=== PATIENT | female | born 1960 | race Caucasian/White ===

== ENCOUNTER 2016-04-25 14:50 | Emergency (ER) | payer BC ==
[~2016-04-25] VITALS: Ht 165.1 cm; Wt 75.0 kg
[2016-04-25 14:57] VITALS: BP 106/52; PULSE 93; RESP 18; TEMP 99.6; O2SAT 96
[2016-04-25] MEDS ORDERED: TOPI1TAB36 PO (15:05)
[2016-04-25] MEDS ORDERED: FENT12DI T-DERMAL (15:05)
[2016-04-25] MEDS ORDERED: HYDR-3535 PO (15:05)
[2016-04-25] MEDS ORDERED: GABA300C5 PO (15:05)
[2016-04-25] MEDS ORDERED: DULO1CAP3 PO (15:05)
[2016-04-25] MEDS ORDERED: VARE1 PO (15:06)
[2016-04-25] MEDS ORDERED: SODIUM CHLORIDE 0.9% FLUSH 10 ML FLUSH IVF PRN (15:30)
[2016-04-25] MEDS ORDERED: SODIUM CHLOR 0.9% 1000 ML INJ 1,000 ML IV ONE (15:30)
--- NOTE | 2016-04-25 15:38 | PD ---
HPI Chief Complaint: General Weakness Time Seen by Provider: 15:11 Travel History International Travel<30 days: No Contact w/Intl Traveler<30days: No Traveled to known affect area: No History of Present Illness HPI Patient is a 55-year-old female who presents to emergency room with EVAC for evaluation. As per patient, she has multiple environmental allergies so she decided to take a Benadryl prior to going outside and her sun so that she would not have a runny nose. Patient reports that she went outside to sit by the pool around 11AM today, reports that she thinks that she fell asleep for about 2 hours. Pt's who is at bedside reports he hollered for patient to get up, reports that he noticed symptoms shaking from patient. Reports that there was an RN at the pool, reports that they got her up and gave her cheese and water and called 911. As per EMS, patient's temperature was 102, patient was given 800ml of normal saline and blood sugar was 88 on scene. Patient reports that prior to getting the IV fluids, she felt dizzy, patient reports that she feels fine and at her baseline. Reports that she feels as if she was dehydrated as she did not drink any fluids while at the pool today. Patient does have history of an inoperable brain tumor - reports that she does go to the [facility] in [place] for follow-up. Patient did have a CAT scan of her brain in February - reports that her CAT scan showed no changes of her brain tumor at this time. Patient with no chest pain or shortness of breath or dizziness at this time. Patient with no complaints. PFSH Past Medical History Depression: Yes Diminished Hearing: No Musculoskeletal: Yes (CHRONIC BACK PAIN) Neurologic: Yes (BRAIN TUMOR) Seizures: Yes Influenza Vaccination: Yes ?: Not Past Surgical History Abdominal Surgery: Yes (GASTRIC BYPASS, ADHESIONS) Cholecystectomy: Yes Eye Surgery: Yes (CATARACTS) Hysterectomy: Yes Neurologic Surgery: Yes (LUMBAR DISECTOMY) Social History Alcohol Use: No Tobacco Use: No Allergies-Medications (Allergen,Severity, Reaction): Coded Allergies: Latex (Verified Allergy, Severe, Hives, 04/25/16) Sulfa (Verified Allergy, Severe, Swelling, 04/25/16) Reported Meds & Prescriptions Reported Meds & Active Scripts Active Reported Chantix (Varenicline) 1 Mg Tab 1 Mg PO BIDPC Topiramate 50 Mg Tab 50 Mg PO BID Duloxetine DR (Duloxetine HCl) 60 Mg Capdr 60 Mg PO DAILY Gabapentin 300 Mg Cap 300 Mg PO QID Lortab (Hydrocodone-Acetaminophen) 10-325 Mg Tab 1 Tab PO Q6H PRN Fentanyl Patch 72 HR (Fentanyl) 12 Mcg/Hr Patch 1 Patch T-DERMAL Q72H Remove old patch when new one placed. Review of Systems General / Constitutional: No: Fever Eyes: No: Visual changes HENT: No: Headaches Cardiovascular: No: Chest Pain or Discomfort Respiratory: No: Shortness of Breath Gastrointestinal: No: Abdominal Pain Genitourinary: No: Dysuria Musculoskeletal: No: Pain Skin: No Rash Neurologic: Positive: Dizziness, No: Weakness Psychiatric: No: Depression Endocrine: No: Polydipsia Hematologic/Lymphatic: No: Easy Bruising Physical Exam Narrative GENERAL: NAD, Nontoxic SKIN: Warm and dry. HEAD: Atraumatic. Normocephalic. EYES: Pupils equal and round. No scleral icterus. No injection or drainage. ENT: No nasal bleeding or discharge. Mucous membranes pink and moist. NECK: Trachea midline. No JVD. CARDIOVASCULAR: Regular rate and rhythm. No murmur appreciated. RESPIRATORY: No accessory muscle use. Clear to auscultation. Breath sounds equal bilaterally. GASTROINTESTINAL: Abdomen soft, non-tender, nondistended. Hepatic and splenic margins not palpable. MUSCULOSKELETAL: No obvious deformities. No clubbing. No cyanosis. No edema. NEUROLOGICAL: Awake and alert. No obvious cranial nerve deficits. Motor grossly within normal limits. Normal speech. PSYCHIATRIC: Appropriate mood and affect; insight and judgment normal. Data Data Last Documented VS Vital Signs Date Time Temp Pulse Resp B/P Pulse Ox O2 Delivery O2 Flow Rate FiO2 04/25/16 15:01 93 04/25/16 14:57 99.6 18 106/52 96 [facility] Medical Decision Making Medical Screen Exam Complete: Yes Emergency Medical Condition: Yes Interpretation(s) Vital Signs Date Time Temp Pulse Resp B/P Pulse Ox O2 Delivery O2 Flow Rate FiO2 04/25/16 15:01 93 04/25/16 14:57 99.6 93 18 106/52 96 Differential Diagnosis dehydration, uti, hyperthemia Narrative Course Patient is a 55-year-old female who presents to emergency room for evaluation of hyperthermia. Patient reports that she took 50 mg of Benadryl prior to going out to to the pool today as she has hx of enviromental allergies. Patient reports that she thinks that she fell asleep for a few hours by the pool. Patient's reports that he went to go with her up and thought that her arms were shaking and patient was unresponsive. Reports that he as well as an RN who was at the pool went to evaluate her and was able to wake her up and give her cheese and water. EMS were called to have patient checked up - BS 88 Temp was 102 Patient was given 800ml of NS by EMS - patient with complete resolution of symptoms at this time. Patient with benign neuro exam while in the emergency room with a temperature of 99.6. Plan to obtain lab work, EKG, UA. Will observe patient this time. Adriane Rico DO Apr 25, 2016 15:38
[2016-04-25 15:44] VITALS: BP 106/54; PULSE 82; RESP 18; TEMP 98; O2SAT 97
[2016-04-25] MEDS ORDERED: MOME17I EACH NARE (15:48)
[2016-04-25] MEDS ORDERED: ASPI1TAB69 PO (15:48)
[2016-04-25] MEDS ORDERED: BENA25TA3 PO (15:48)
[2016-04-25 15:56] LABS: CHLORIDE 100 MEQ/L (98-107); SODIUM (NA) 133 MEQ/L (136-145)
[2016-04-25 16:00] LABS: ANION GAP 11 MEQ/L (5-15); BICARBONATE 22.3 MEQ/L (21.0-32.0); BLOOD UREA NITROGEN 15 MG/DL (7-18)
[2016-04-25 16:03] LABS: ALT (GPT) 19 U/L (10-53); AST (GOT) 26 U/L (15-37); GLOMERULAR FILTRATION RATE 57 ML/MIN (>89)
[2016-04-25 16:04] LABS: TOTAL BILIRUBIN ADULT 0.5 MG/DL (0.2-1.0)
[2016-04-25 16:06] LABS: ALKALINE PHOSPHATASE 67 U/L (45-117); CREATINE KINASE 302 U/L (26-192)
[2016-04-25 16:18] LABS: CKMB 2.4 NG/ML (0.5-3.6)
[2016-04-25 16:27] LABS: AUTOMATED NEUTROPHIL # 3.8 TH/MM3 (1.8-7.7); BASOPHIL % 0.4 % (0.0-2.0); EOSINOPHIL # 0.2 TH/MM3 (0-0.4); EOSINOPHIL % 3.2 % (0.0-4.0); HEMATOCRIT 33.9 % (35.0-46.0); HEMO FLAGS DIFF FINAL; LYMPH % 19.3 % (9.0-44.0); MEAN CELL VOLUME 82.1 FL (80.0-100.0); MEAN CORPUSCULAR HEMOGLOBIN 25.7 PG (27.0-34.0); MEAN CORPUSCULAR HGB CONC 31.3 % (32.0-36.0); MONO % 4.3 % (0.0-8.0); NEUT % 72.8 % (16.0-70.0); PLATELET COUNT 253 TH/MM3 (150-450); RED BLOOD COUNT 4.13 MIL/MM3 (4.00-5.30); RED CELL DISTRIBUTION WIDTH 14.7 % (11.6-17.2); WHITE BLOOD COUNT 5.2 TH/MM3 (4.0-11.0)
--- NOTE | 2016-04-25 16:55 | PD ---
Physical Exam Date Seen by Provider: Apr 25, 2016 Time Seen by Provider: 16:54 Narrative This 55-year-old lady was laying by the pool today she had taken 2 Benadryl. She had some twitching which she has had before. She is a little bit hard to arouse. She had a temp of 102 at the scene. He was given some fluids. Here she feels well. She had no prodrome of illness prior to letting bilaterally. She feels well now. Her lab work is unremarkable. He is stable for discharge. This may have been a heat related illness Data Data Last Documented VS Vital Signs Date Time Temp Pulse Resp B/P Pulse Ox O2 Delivery O2 Flow Rate FiO2 04/25/16 15:44 98.0 82 18 106/54 97 Room Air Orders Ckmb (Isoenzyme) Profile (04/25/16 15:28) Complete Blood Count With Diff (04/25/16 15:28) Comprehensive Metabolic Panel (04/25/16 15:28) Troponin I (04/25/16 15:28) Ecg Monitoring (04/25/16 15:28) Iv Access Insert/Monitor (04/25/16 15:28) Oximetry (04/25/16 15:28) Sodium Chloride 0.9% Flush (Ns Flush) (04/25/16 15:30) Sodium Chlor 0.9% 1000 Ml Inj (Ns 1000 M (04/25/16 15:30) CKMB (04/25/16 15:00) CKMB% (04/25/16 15:00) Labs Laboratory Tests Test 04/25/16 15:00 White Blood Count 5.2 TH/MM3 Red Blood Count 4.13 MIL/MM3 Hemoglobin 10.6 GM/DL Hematocrit 33.9 % Mean Corpuscular Volume 82.1 FL Mean Corpuscular Hemoglobin 25.7 PG Mean Corpuscular Hemoglobin 31.3 % Concent Red Cell Distribution Width 14.7 % Platelet Count 253 TH/MM3 Mean Platelet Volume 8.1 FL Neutrophils (%) (Auto) 72.8 % Lymphocytes (%) (Auto) 19.3 % Monocytes (%) (Auto) 4.3 % Eosinophils (%) (Auto) 3.2 % Basophils (%) (Auto) 0.4 % Neutrophils # (Auto) 3.8 TH/MM3 Lymphocytes # (Auto) 1.0 TH/MM3 Monocytes # (Auto) 0.2 TH/MM3 Eosinophils # (Auto) 0.2 TH/MM3 Basophils # (Auto) 0.0 TH/MM3 CBC Comment DIFF FINAL Differential Comment Sodium Level 133 MEQ/L Potassium Level 4.0 MEQ/L Chloride Level 100 MEQ/L Carbon Dioxide Level 22.3 MEQ/L Anion Gap 11 MEQ/L Blood Urea Nitrogen 15 MG/DL Creatinine 1.00 MG/DL Estimat Glomerular Filtration 57 ML/MIN Rate Random Glucose 95 MG/DL Calcium Level 7.8 MG/DL Total Bilirubin 0.5 MG/DL Aspartate Amino Transf 26 U/L (AST/SGOT) Alanine Aminotransferase 19 U/L (ALT/SGPT) Alkaline Phosphatase 67 U/L Total Creatine Kinase 302 U/L Creatine Kinase MB 2.4 NG/ML Creatine Kinase MB % 0.8 % Troponin I LESS THAN 0.02 NG/ML Total Protein 5.9 GM/DL Albumin 3.2 GM/DL [facility] Medical Record Reviewed: No Supervised Visit with KEN: No Differential Diagnosis Differential includes URI, UTI, heat-related illness Narrative Course There is no evidence of infection and the patient feels well now. Her lab work is unremarkable Diagnosis Primary Impression: heat related illness Disposition: DISCHARGE HOME Condition: Stable Dennis Wise MD Apr 25, 2016 16:55
[2016-04-25 17:15] VITALS: BP 109/68
--- NOTE | 2016-04-26 11:03 | EKG ---
Date Performed: 04/25/2016 Time Performed: 14:56:34 PTAGE: 55 years EKG: Sinus rhythm Low QRS voltages in precordial leads Borderline ECG NO PREVIOUS TRACING DOCTOR: Bradford Starr Interpretating Date/Time 04/26/2016 11:02:20
== END 2016-04-25 17:17 | disposition home or self-care (01) ==
LOC: PHED 14:50
DX: T67.9XXA Effect of heat and light, unspecified, initial encounter (principal); D49.6 Neoplasm of unspecified behavior of brain; X58.XXXA Exposure to other specified factors, initial encounter; Y93.89 Activity, other specified; Y92.838 Other recreation area as the place of occurrence of the external cause; Y99.8 Other external cause status
CPT/HCPCS: 80053; 82550; 82552; 84484; 85025; 93005; 96360; 99284; J7030

== ENCOUNTER 2017-03-30 12:38 | Emergency (ER) | payer BC, MEDICARE ==
[~2017-03-30] VITALS: Ht 167.6 cm; Wt 71.5 kg
[~2017-03-30 12:38] MED LIST: ASPI1TAB69 PO; BENA25TA3 PO; DULO1CAP3 PO; FENT12DI T-DERMAL; GABA300C5 PO; HYDR-3535 PO; MOME17I EACH NARE; TOPI50TA7 PO; VARE1 PO
[2017-03-30 12:50] VITALS: BP 134/74; PULSE 89; RESP 16; TEMP 98.2; O2SAT 95
[2017-03-30] MEDS ORDERED: ASPI81TA23 PO (13:35)
[2017-03-30] MEDS ORDERED: HYDR-3583 PO (13:35)
[2017-03-30] MEDS ORDERED: POTA1TAB4 PO (13:37)
[2017-03-30] MEDS ORDERED: METO2.5T PO (13:37)
[2017-03-30] MEDS ORDERED: OMEP40CA2 PO (13:37)
[2017-03-30] MEDS ORDERED: FURO1TAB62 PO (13:37)
[2017-03-30] MEDS ORDERED: ZIPR1CAP10 PO (13:39)
[2017-03-30] MEDS ORDERED: PROP10TA6 PO (13:39)
[2017-03-30] MEDS ORDERED: THIA100T16 PO (13:41)
[2017-03-30] MEDS ORDERED: LORazepam 2 MG/ML VIAL IM SCH (14:00)
[2017-03-30] MEDS ORDERED: HALOPERIDOL LACTATE 5 MG/ML AMP IM ONE (14:00)
--- NOTE | 2017-03-30 14:07 | PD ---
HPI . Anxiety Chief Complaint: Anxiety Time Seen by Provider: 13:29 Travel History International Travel<30 days: No Contact w/Intl Traveler<30days: No Traveled to known affect area: No History of Present Illness HPI This patient presents with chief complaint of anxiety. The majority of the history is obtained from a male business development representative. The patient herself is up pacing about the department which makes doing a history and physical impossible. The business development representative reports that she has a long-standing history of anxiety and basically just paces all the time. In addition, she reports chronic low back pain. The patient and her business development representative report that they were instructed to come here or primary care physician for an injection. PFSH Past Medical History Bipolar Disorder: Yes Anxiety: Yes Depression: Yes Diminished Hearing: No GERD: Yes Musculoskeletal: Yes (CHRONIC BACK PAIN) Neurologic: Yes (BRAIN TUMOR) Psychiatric: Yes Seizures: Yes Ulcer: Yes Tetanus Vaccination: < 5 Years Influenza Vaccination: Yes ?: Not Menopausal: Yes Past Surgical History Abdominal Surgery: Yes (GASTRIC BYPASS, ADHESIONS) Cholecystectomy: Yes Eye Surgery: Yes (CATARACTS) Hysterectomy: Yes Neurologic Surgery: Yes (LUMBAR DISECTOMY) Other Surgery: Yes (CRANIOTOMY r/t brain tumor beign ,tummy tuck) Social History Alcohol Use: No Tobacco Use: No (quit 02/2015) Substance Use: No Allergies-Medications (Allergen,Severity, Reaction): Coded Allergies: Sulfa (Sulfonamide Antibiotics) (Unverified Allergy, Severe, Swelling, ) latex (Unverified Allergy, Severe, Hives, 03/30/17) Reported Meds & Prescriptions Reported Meds & Active Scripts Active Reported Vitamin B-1 (Thiamine Mononitrate) 100 Mg Tab 100 Mg PO DAILY Propranolol (Propranolol HCl) 10 Mg Tab 10 Mg PO Q12HR Ziprasidone 60 Mg Cap 60 Mg PO BID Metolazone 2.5 Mg Tab 2.5 Mg PO DIRECTED Omeprazole 40 Mg Cap 40 Mg PO DAILY K-Tab (Potassium Chloride) 20 Meq Tab 20 Meq PO DAILY Lasix (Furosemide) 20 Mg Tab 20 Mg PO BID Aspirin EC (Aspirin) 81 Mg Tabdr 81 Mg PO DAILY Hydrocodone-Acetamin 10-325 mg (Hydrocodone/Acetaminophen) 10 Mg-325 Mg Tablet 1 Mg PO Q6HR Topiramate 50 Mg Tab 50 Mg PO BID Fentanyl Patch 72 HR (Fentanyl) 12 Mcg/Hr Patch 1 Patch T-DERMAL Q72H Remove old patch when new one placed. Review of Systems ROS Limitations: Poor Historian Physical Exam Narrative GENERAL: Awake and alert. Pacing about the department. SKIN: Warm and dry. HEAD: Normocephalic/atraumatic. EYES: Pupils are equal. Extraocular movements are intact. NECK: Normal range of motion. Distally RESPIRATORY: Nonlabored respirations. MUSCULOSKELETAL: She is able to walk with no obvious musculoskeletal abnormalities. NEUROLOGICAL: Nonfocal. PSYCHIATRIC: Flat affect. Pacing. Data Data Last Documented VS Vital Signs Date Time Temp Pulse Resp B/P (MAP) Pulse Ox O2 Delivery O2 Flow Rate FiO2 03/30/17 13:46 16 03/30/17 12:50 98.2 89 134/74 (94) 95 Orders Orders Lorazepam Inj (Ativan Inj) (03/30/17 14:00) Haloperidol Inj (Haldol Inj) (03/30/17 14:00) [facility] Medical Decision Making Medical Screen Exam Complete: Yes Emergency Medical Condition: Yes Differential Diagnosis My differential diagnosis anxiety includes but is not limited to generalized anxiety disorder, depression, psychoses, drug abuse, alcohol abuse Narrative Course This patient presents with the chief complaint anxiety. She has a very flat affect. She is pacing in the department. I will give her a shot of Ativan and Haldol. She states that Ativan by itself does not help her. She is wanting me to give her shot for something for pain as well as for her anxiety. I feel that the combination of Haldol and Ativan should accomplish both missions. The patient reports improvement in her symptoms. Diagnosis Primary Impression: Anxiety Additional Impression: Back pain Qualified Codes: M54.5 - Low back pain; G89.29 - Other chronic pain Disposition: 01 DISCHARGE HOME Condition: Stable Brittnee Swanson MD Mar 30, 2017 14:07
[2017-03-30 15:35] VITALS: BP 130/79
== END 2017-03-30 15:39 | disposition home or self-care (01) ==
LOC: PHED 12:38
DX: F41.9 Anxiety disorder, unspecified (principal); M54.5 Low back pain; G89.29 Other chronic pain; F31.9 Bipolar disorder, unspecified; K21.9 Gastro-esophageal reflux disease without esophagitis; Z87.891 Personal history of nicotine dependence
CPT/HCPCS: 96372; 99283; J1630; J2060

== ENCOUNTER 2017-03-31 11:19 | Emergency (ER) | payer MEDICARE ==
[~2017-03-31] VITALS: Ht 167.6 cm; Wt 72.0 kg
[~2017-03-31 11:19] MED LIST changes: -ASPI1TAB69 PO; +ASPI81TA23 PO; -BENA25TA3 PO; -DULO1CAP3 PO; +FURO1TAB62 PO; -GABA300C5 PO; -HYDR-3535 PO; +HYDR-3583 PO; +METO2.5T PO; -MOME17I EACH NARE; +OMEP40CA2 PO; +POTA1TAB4 PO; +PROP10TA6 PO; +THIA100T16 PO; -VARE1 PO; +ZIPR1CAP10 PO
[2017-03-31 11:36] VITALS: BP 129/79; PULSE 82; RESP 16; TEMP 97.5; O2SAT 95
--- NOTE | 2017-03-31 12:28 | PD ---
HPI . Anxiety Chief Complaint: Anxiety Time Seen by Provider: 12:24 Travel History International Travel<30 days: No Contact w/Intl Traveler<30days: No Traveled to known affect area: No History of Present Illness HPI This is a patient that I just saw yesterday for anxiety. She was treated with Haldol and Ativan IM. She presents today complaining of recurrent anxiety symptoms starting 3 hours prior to presentation. PFSH Past Medical History Bipolar Disorder: Yes Anxiety: Yes Depression: Yes Diminished Hearing: No GERD: Yes Musculoskeletal: Yes (CHRONIC BACK PAIN) Neurologic: Yes (BRAIN TUMOR) Psychiatric: Yes Seizures: Yes Ulcer: Yes Tetanus Vaccination: < 5 Years Influenza Vaccination: Yes ?: Not Menopausal: Yes Past Surgical History Abdominal Surgery: Yes (GASTRIC BYPASS, ADHESIONS) Cholecystectomy: Yes Eye Surgery: Yes (CATARACTS) Hysterectomy: Yes Neurologic Surgery: Yes (LUMBAR DISECTOMY) Other Surgery: Yes (CRANIOTOMY r/t brain tumor beign ,tummy tuck) Social History Alcohol Use: No Tobacco Use: No (quit 02/2015) Substance Use: No Allergies-Medications (Allergen,Severity, Reaction): Coded Allergies: Sulfa (Sulfonamide Antibiotics) (Unverified Allergy, Severe, Swelling, ) latex (Unverified Allergy, Severe, Hives, 03/31/17) Reported Meds & Prescriptions Reported Meds & Active Scripts Active Reported Vitamin B-1 (Thiamine Mononitrate) 100 Mg Tab 100 Mg PO DAILY Propranolol (Propranolol HCl) 10 Mg Tab 10 Mg PO Q12HR Ziprasidone 60 Mg Cap 60 Mg PO BID Metolazone 2.5 Mg Tab 2.5 Mg PO DIRECTED Omeprazole 40 Mg Cap 40 Mg PO DAILY K-Tab (Potassium Chloride) 20 Meq Tab 20 Meq PO DAILY Lasix (Furosemide) 20 Mg Tab 20 Mg PO BID Aspirin EC (Aspirin) 81 Mg Tabdr 81 Mg PO DAILY Hydrocodone-Acetamin 10-325 mg (Hydrocodone/Acetaminophen) 10 Mg-325 Mg Tablet 1 Mg PO Q6HR Topiramate 50 Mg Tab 50 Mg PO BID Fentanyl Patch 72 HR (Fentanyl) 12 Mcg/Hr Patch 1 Patch T-DERMAL Q72H Remove old patch when new one placed. Review of Systems Except as stated in HPI: all other systems reviewed are Neg Musculoskeletal: Positive: Pain (chronic back pain) Physical Exam Narrative GENERAL: Awake and alert. SKIN: Warm and dry. HEAD: Normocephalic/atraumatic. EYES: Pupils are equal. Extraocular movements are intact. NECK: Normal range of motion. RESPIRATORY: Nonlabored respirations. MUSCULOSKELETAL: Atraumatic. NEUROLOGICAL: Nonfocal. PSYCHIATRIC: Flat affect. Pacing about the department. Data Data Last Documented VS Vital Signs Date Time Temp Pulse Resp B/P (MAP) Pulse Ox O2 Delivery O2 Flow Rate FiO2 03/31/17 11:36 97.5 82 16 129/79 (96) 95 Orders Orders Lorazepam Inj (Ativan Inj) (03/31/17 12:30) Haloperidol Inj (Haldol Inj) (03/31/17 12:30) MDM Medical Decision Making Medical Screen Exam Complete: Yes Emergency Medical Condition: Yes Differential Diagnosis My differential diagnosis anxiety includes but is not limited to generalized anxiety disorder, depression, psychoses, drug abuse, alcohol abuse Narrative Course Patient presents complaining with recurrent anxiety. I saw her yesterday for the same thing and treated her with Haldol and Ativan. I will treat her with Haldol and Ativan again today. Diagnosis Primary Impression: Anxiety Patient Instructions: Anxiety (DC), General Instructions Additional Instructions: Please tell your doctor that you were treated in the emergency department with Haldol 5 mg IM and Ativan 2 mg IM with good temporary relief of your anxiety Disposition: 01 DISCHARGE HOME Condition: Stable Brittnee Swanson MD Mar 31, 2017 12:28
[2017-03-31] MEDS ORDERED: LORazepam 2 MG/ML VIAL IM SCH (12:30)
[2017-03-31] MEDS ORDERED: HALOPERIDOL LACTATE 5 MG/ML AMP IM ONE (12:30)
[2017-04-01] MEDS ORDERED: DIAZ5 PO (12:36)
== END 2017-03-31 13:15 | disposition home or self-care (01) ==
LOC: PHED 11:19
DX: F41.9 Anxiety disorder, unspecified (principal); F31.9 Bipolar disorder, unspecified; Z98.84 Bariatric surgery status; Z87.891 Personal history of nicotine dependence; Z88.2 Allergy status to sulfonamides; Z79.82 Long term (current) use of aspirin; Z79.899 Other long term (current) drug therapy
CPT/HCPCS: 96372; 99283; J1630; J2060

== ENCOUNTER 2017-04-01 11:37 | Emergency (ER) | payer MEDICARE ==
[~2017-04-01] VITALS: Ht 167.6 cm; Wt 72.7 kg
[2017-04-01 11:45] VITALS: BP 115/70; PULSE 86; RESP 16; TEMP 97.8; O2SAT 93
[2017-04-01] MEDS ORDERED: DIAZ5 PO (12:36)
--- NOTE | 2017-04-01 12:36 | PD ---
HPI Chief Complaint: Anxiety Time Seen by Provider: 12:30 Travel History International Travel<30 days: No Contact w/Intl Traveler<30days: No Traveled to known affect area: No History of Present Illness HPI Patient presents with uncontrolled anxiety. Evaluated Sunday and Sunday with moderately control of her anxiety with Ativan. Compliant with Inderal. Scheduled to see her primary care provider for further control her anxiety on Sunday. Denies any suicide ideation. Pacing the room regularly. PFSH Past Medical History Bipolar Disorder: Yes Anxiety: Yes Depression: Yes Diminished Hearing: No GERD: Yes Musculoskeletal: Yes (CHRONIC BACK PAIN) Neurologic: Yes (BRAIN TUMOR) Psychiatric: Yes Seizures: Yes Ulcer: Yes Tetanus Vaccination: > 5 Years Influenza Vaccination: Yes ?: Not Menopausal: Yes Past Surgical History Abdominal Surgery: Yes (GASTRIC BYPASS, ADHESIONS) Cholecystectomy: Yes Eye Surgery: Yes (CATARACTS) Hysterectomy: Yes Neurologic Surgery: Yes (LUMBAR DISECTOMY) Other Surgery: Yes (CRANIOTOMY r/t brain tumor beign ,tummy tuck) Social History Alcohol Use: No Tobacco Use: No (quit 02/2015) Substance Use: No Allergies-Medications (Allergen,Severity, Reaction): Coded Allergies: Sulfa (Sulfonamide Antibiotics) (Unverified Allergy, Severe, Swelling, ) latex (Unverified Allergy, Severe, Hives, 03/31/17) Reported Meds & Prescriptions Reported Meds & Active Scripts Active Reported Vitamin B-1 (Thiamine Mononitrate) 100 Mg Tab 100 Mg PO DAILY Propranolol (Propranolol HCl) 10 Mg Tab 10 Mg PO Q12HR Ziprasidone 60 Mg Cap 60 Mg PO BID Metolazone 2.5 Mg Tab 2.5 Mg PO DIRECTED Omeprazole 40 Mg Cap 40 Mg PO DAILY K-Tab (Potassium Chloride) 20 Meq Tab 20 Meq PO DAILY Lasix (Furosemide) 20 Mg Tab 20 Mg PO BID Aspirin EC (Aspirin) 81 Mg Tabdr 81 Mg PO DAILY Hydrocodone-Acetamin 10-325 mg (Hydrocodone/Acetaminophen) 10 Mg-325 Mg Tablet 1 Mg PO Q6HR Topiramate 50 Mg Tab 50 Mg PO BID Fentanyl Patch 72 HR (Fentanyl) 12 Mcg/Hr Patch 1 Patch T-DERMAL Q72H Remove old patch when new one placed. Review of Systems General / Constitutional: No: Fever Eyes: No: Visual changes HENT: No: Headaches Cardiovascular: No: Chest Pain or Discomfort Respiratory: No: Shortness of Breath Gastrointestinal: No: Abdominal Pain Genitourinary: No: Dysuria Musculoskeletal: No: Pain Skin: No Rash Neurologic: No: Weakness Psychiatric: No: Depression Endocrine: No: Polydipsia Hematologic/Lymphatic: No: Easy Bruising Physical Exam Narrative GENERAL: Well-nourished, well-developed patient. SKIN: Focused skin assessment warm/dry. HEAD: Normocephalic. EYES: No scleral icterus. No injection or drainage. NECK: Supple, trachea midline. No JVD or lymphadenopathy. CARDIOVASCULAR: Regular rate and rhythm without murmurs, gallops, or rubs. RESPIRATORY: Breath sounds equal bilaterally. No accessory muscle use. GASTROINTESTINAL: Abdomen soft, non-tender, nondistended. MUSCULOSKELETAL: No cyanosis, or edema. BACK: Nontender without obvious deformity. No CVA tenderness. Data Data Last Documented VS Vital Signs Date Time Temp Pulse Resp B/P (MAP) Pulse Ox O2 Delivery O2 Flow Rate FiO2 04/01/17 11:45 97.8 86 16 115/70 (85) 93 Orders Orders Diazepam (Valium) (04/01/17 12:45) [facility] Medical Decision Making Medical Screen Exam Complete: Yes Emergency Medical Condition: Yes Differential Diagnosis Anxiety, malingering, depression Narrative Course Assessment and plan discussed with patient and at bedside Diagnosis Primary Impression: Anxiety Patient Instructions: General Instructions Additional Instructions: Valium as prescribed, encouraged regular exercise, keep regularly scheduled appointment. Return to emergency room with any onset of new symptoms. Med/Other Pt SpecificInfo: Prescription(s) given Scripts Diazepam (Valium) 5 Mg Tab 5 MG PO TID Y for ANXIETY, #6 TAB 0 Refills Prov: Emmett Bravo MD 04/01/17 Disposition: 01 DISCHARGE HOME Condition: Good Emmett Bravo MD Apr 01, 2017 12:36
[2017-04-01] MEDS ORDERED: DIAZEPAM 5 MG TAB PO ONE (12:45)
== END 2017-04-01 12:43 | disposition home or self-care (01) ==
LOC: PHED 11:37
DX: F41.9 Anxiety disorder, unspecified (principal); F31.9 Bipolar disorder, unspecified; K21.9 Gastro-esophageal reflux disease without esophagitis; R56.9 Unspecified convulsions; Z79.82 Long term (current) use of aspirin; Z79.899 Other long term (current) drug therapy; Z88.2 Allergy status to sulfonamides
CPT/HCPCS: 99283

== ENCOUNTER 2017-04-01 18:53 | Emergency (ER) | payer MEDICARE ==
[~2017-04-01] VITALS: Ht 167.6 cm; Wt 72.6 kg
[~2017-04-01 18:53] MED LIST changes: +DIAZ5 PO
[2017-04-01 19:09] VITALS: BP 138/73; PULSE 104; RESP 20; TEMP 98.2; O2SAT 93
[2017-04-01 19:23] VITALS: BP 132/89; PULSE 131; RESP 18; O2SAT 97
[2017-04-01] MEDS ORDERED: DIAZEPAM 5 MG TAB PO ONE (19:45)
--- NOTE | 2017-04-01 19:49 | PD ---
HPI Chief Complaint: Anxiety Time Seen by Provider: 19:36 Travel History International Travel<30 days: No Contact w/Intl Traveler<30days: No Traveled to known affect area: No History of Present Illness HPI 56-year-old female patient with history of bipolar disorder, seen several times today because of pacing and anxiety, inability to sleep, has been given Ativan and was given Valium this afternoon, and she is back because she is pacing again. Her states that she is supposed to see the psychiatrist on Sunday but they are trying to get the appointment moved to tomorrow. She denies any new issues. Modifying Factors: None Associated Signs & Symptoms: Anxiety, pacing, insomnia Risk Factors: Bipolar disorder PFSH Past Medical History Bipolar Disorder: Yes Anxiety: Yes Depression: Yes Diminished Hearing: No GERD: Yes Musculoskeletal: Yes (CHRONIC BACK PAIN) Neurologic: Yes (BRAIN TUMOR) Psychiatric: Yes Seizures: Yes Ulcer: Yes Menopausal: Yes Past Surgical History Abdominal Surgery: Yes (GASTRIC BYPASS, ADHESIONS) Cholecystectomy: Yes Eye Surgery: Yes (CATARACTS) Hysterectomy: Yes Neurologic Surgery: Yes (LUMBAR DISECTOMY) Other Surgery: Yes (CRANIOTOMY r/t brain tumor beign ,tummy tuck) Social History Alcohol Use: No Tobacco Use: No (quit 02/2015) Substance Use: No Allergies-Medications (Allergen,Severity, Reaction): Coded Allergies: Sulfa (Sulfonamide Antibiotics) (Unverified Allergy, Severe, Swelling, ) latex (Unverified Allergy, Severe, Hives, 04/01/17) Reported Meds & Prescriptions Reported Meds & Active Scripts Active Valium (Diazepam) 5 Mg Tab 5 Mg PO TID PRN Reported Vitamin B-1 (Thiamine Mononitrate) 100 Mg Tab 100 Mg PO DAILY Propranolol (Propranolol HCl) 10 Mg Tab 10 Mg PO Q12HR Ziprasidone 60 Mg Cap 60 Mg PO BID Metolazone 2.5 Mg Tab 2.5 Mg PO DIRECTED Omeprazole 40 Mg Cap 40 Mg PO DAILY K-Tab (Potassium Chloride) 20 Meq Tab 20 Meq PO DAILY Lasix (Furosemide) 20 Mg Tab 20 Mg PO BID Aspirin EC (Aspirin) 81 Mg Tabdr 81 Mg PO DAILY Hydrocodone-Acetamin 10-325 mg (Hydrocodone/Acetaminophen) 10 Mg-325 Mg Tablet 1 Mg PO Q6HR Topiramate 50 Mg Tab 50 Mg PO BID Fentanyl Patch 72 HR (Fentanyl) 12 Mcg/Hr Patch 1 Patch T-DERMAL Q72H Remove old patch when new one placed. Review of Systems Except as stated in HPI: all other systems reviewed are Neg Physical Exam Narrative GENERAL: Well-developed middle-aged female patient currently in mild distress. Awake and oriented 3., Anxious, pacing in the ER. SKIN: Focused skin assessment warm/dry. HEAD: Atraumatic. Normocephalic. EYES: Pupils equal and round. No scleral icterus. No injection or drainage. ENT: No nasal bleeding or discharge. Mucous membranes pink and moist. NECK: Trachea midline. No JVD. CARDIOVASCULAR: Regular rate and rhythm. No murmur appreciated. RESPIRATORY: No accessory muscle use. Clear to auscultation. Breath sounds equal bilaterally. GASTROINTESTINAL: Abdomen soft, non-tender, nondistended. Hepatic and splenic margins not palpable. MUSCULOSKELETAL: No obvious deformities. No clubbing. No cyanosis. No edema. NEUROLOGICAL: Awake and alert. No obvious cranial nerve deficits. Motor grossly within normal limits. Normal speech. PSYCHIATRIC: Appropriate mood and affect; insight and judgment normal. Data Data Last Documented VS Vital Signs Date Time Temp Pulse Resp B/P (MAP) Pulse Ox O2 Delivery O2 Flow Rate FiO2 04/01/17 20:30 85 18 110/61 (77) 94 Room Air 04/01/17 19:09 98.2 Orders Orders Diazepam (Valium) (04/01/17 19:45) Electrocardiogram (04/01/17 20:10) [facility] Medical Decision Making Medical Screen Exam Complete: Yes Emergency Medical Condition: Yes Medical Record Reviewed: Yes Differential Diagnosis Anxiety attack versus bipolar exacerbation versus medication side effect Narrative Course She was given additional dose of Valium in the ER. It seems that both the Valium and Ativan helps her several hours but then the symptoms come back. She will need to see her psychiatrist tomorrow. While in the ER she did become fairly anxious and was complaining of chest discomfort, an EKG was done which did not show significant dysrhythmias although there is quite a lot of artifact. I do not see any signs of acute ST elevations or depressions. At this point, I suspect it is related to her anxiety. Patient was watched further and on reevaluation at 8:50 PM, states that her's anxiety and symptoms have subsided. She is sitting in bed feeling much better. My plan would be to release her at this point to follow-up as previously discussed. The plan was discussed with her and and they state understanding. Diagnosis Primary Impression: Anxiety Disposition: 01 DISCHARGE HOME Condition: Stable Karly Gamez MD Apr 01, 2017 19:49
[2017-04-01 20:30] VITALS: BP 110/61; PULSE 85; RESP 18; O2SAT 94
[2017-04-01 21:12] VITALS: BP 118/75
--- NOTE | 2017-04-02 12:17 | EKG ---
Date Performed: 04/01/2017 Time Performed: 20:36:36 PTAGE: 56 years EKG: Sinus rhythm NORMAL ECG INTERPRETATION BASED ON A DEFAULT AGE OF 40 YEARS Since the prior tracing, there has been no significant change DOCTOR: Frederick Campos Interpretating Date/Time 04/02/2017 12:15:27
== END 2017-04-01 21:18 | disposition home or self-care (01) ==
LOC: PHED 18:53
DX: F41.9 Anxiety disorder, unspecified (principal); F31.9 Bipolar disorder, unspecified; K21.9 Gastro-esophageal reflux disease without esophagitis; R56.9 Unspecified convulsions; Z87.891 Personal history of nicotine dependence; Z88.2 Allergy status to sulfonamides; Z79.899 Other long term (current) drug therapy
CPT/HCPCS: 93005; 99283